=== PATIENT | female | born 1970 | race Caucasian/White ===

== ENCOUNTER 2017-09-20 23:21 | Observation (INO) ==
[2017-09-20] MEDS ORDERED: *HR* FentaNYL (PF) 100 MCG/2 ML VIAL IVP ONE (23:42)
[2017-09-21] MEDS ORDERED: Lidocaine 1% 20 ML MDV INFILT ONE (00:23)
--- NOTE | 2017-09-21 00:59 | Emergency Department Note ---
Disposition Clinical Impression: Ankle fracture Disposition: Admitted As Inpatient Condition: Good Time of Disposition: 01:42 General Adult HPI - General Chief complaint: ED Extremity Injury, Lower Stated complaint: Right Leg Injury Time Seen by Provider: 09/20/17 23:40 - History of Present Illness Pain Scale: 10 - Related Data Previous Rx's Medication Instructions Recorded Clindamycin [Cleocin] 150 mg PO Q6HR #8 capsule 05/04/15 OxyCODONE Immed Rel [Roxicodone 5 5 - 10 mg PO Q6HR PRN #30 tablet 05/04/15 MG] HYDROcodone/Acet 5/325 mg [[place] 1 tab PO Q4H PRN 3 Days #10 tab 09/18/17 5-325 mg] Allergies Allergy/AdvReac Type Severity Reaction Status Date / Time No Known Allergies Allergy Verified 09/18/17 22:05 Past Medical History - Past Medical History Medical history: Reports: no medical history Surgical history: Reports: hysterectomy, other Psychiatric history: Reports: no psych history 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 - Social History Smoking Status: Never smoker Smokeless Tobacco Status: No Alcohol use: Reports: rarely Drug use: Reports: none Course Vital Signs Temperature 98.7 F 09/20/17 23:37 Pulse Rate 98 09/20/17 23:37 Respiratory Rate 14 09/20/17 23:37 Blood Pressure 139/86 09/20/17 23:37 O2 Sat by Pulse Oximetry 98 09/20/17 23:37 Temperature 98.7 F 09/21/17 01:31 Pulse Rate 98 09/21/17 01:31 Respiratory Rate 14 09/21/17 01:31 Blood Pressure 139/86 09/21/17 01:31 O2 Sat by Pulse Oximetry 98 09/21/17 01:31 Oxygen Delivery Oxygen Delivery Room Air Attestation Statement - Attestation Attestation: I, Rodri Dacosta DO, examined this patient [id number] and my medical decision-making was reviewed with Dr. Flaco Cohen, Resident Physician. I agree with the documented findings, disposition and treatment plan as described except to the extent set forth below. Please see my progress notes for details. 47-year-old female presents for evaluation of reinjury to the right lower extremity and ankle. Patient was seen by myself yesterday for an ankle fracture. It appropriately reduction with hematoma block the right ankle with what appeared to be a bimalleolar versus trimalleolar fracture. Patient tripped and stumbled today reinjuring the foot. She has significant pain patient has any head injury or trauma. She is denying chest pain shortness of breath fevers chills nausea vomiting or diarrhea. Denies any headache or vision change. Reevaluation the foot shows good capillary refill and warmth to the foot. She does have palpable DP and PT pulses are symmetric to the left lower extremity. She has no other injuries or trauma this time. Repeat x-ray does show slight subluxation of the joint laterally consistent with the prereduction films of her collected yesterday. Patient had a repeat hematoma block completed here in the emergency room any complication a slight reduction of the ankle without issue. Pain was controlled patient was comfortable during the procedure despite some slight pain. Pain medication by IV distribution has been provided. Patient feels that she is unsafe to go home she cannot use crutches without she did not fall. Patient will be admitted to the hospital for further observation surgical consultation for the ankle fracture. Orthopedic physician was contacted. Discussed with the hospitalist make sure that confirm whether this goes to the radiation oncologist or the orthopedic physician for definitive management. Patient will be admitted for symptomatic pain control and reevaluation by the operative physicians. Patient otherwise currently stable. Postreduction films ordered here today. Pain has been controlled. See detailed documentation of the physical exam, medical intervention, medical decision-making disposition and procedures in the resident physician's note. 0135 Postreduction film shows stable presentation ankle mortise joint. The talus is still a centrally located over the tibial plafond. There is a slight lateral subluxation with probable reduction of this time. Patient is still requiring intervention. Patient will have some manipulation of the joint space again and admission. Every time she moves her leg the joint seemed to slip laterally. Patient does have good pulses with good capillary refill after the reduction as well as with the splint in place. She will be admitted to hospitals for definitive management.
--- NOTE | 2017-09-21 01:08 | Emergency Department Note ---
Disposition Clinical Impression: Ankle fracture Qualifiers: Encounter type: subsequent encounter Fracture type: closed Laterality: right Fracture healing: with nonunion Qualified Code(s): S82.891K - Other fracture of right lower leg, subsequent encounter for closed fracture with nonunion Disposition: Admitted As Inpatient Condition: Good Time of Disposition: 01:56 General Adult HPI - General Chief complaint: ED Extremity Injury, Lower Stated complaint: Right Leg Injury Time Seen by Provider: 09/20/17 23:40 Source: patient, family Mode of arrival: wheelchair Limitations: no limitations Nursing Notes Reviewed: Yes Vital Signs Reviewed: Yes - History of Present Illness HPI Narrative: Patient is a 47-year-old female presents for evaluation after fall at home causing reinjury to her right ankle. The patient was seen 2 nights ago in which she had a fall causing a trimalleolar ankle fracture to the right lower extremity. At that time she underwent a hematoma block and had a reduction and splint place with planned follow-up for orthopedic. Today she was walking the bathroom and tripped forward causing her right foot to go into extreme plantar flexion causing reinjury to the same ankle. She denies any other injury, no loss of consciousness, no head or neck injury. No loss of sensation in the foot. Pain Scale: 10 - Related Data Previous Rx's Medication Instructions Recorded Clindamycin [Cleocin] 150 mg PO Q6HR #8 capsule 05/04/15 OxyCODONE Immed Rel [Roxicodone 5 5 - 10 mg PO Q6HR PRN #30 tablet 05/04/15 MG] HYDROcodone/Acet 5/325 mg [[place] 1 tab PO Q4H PRN 3 Days #10 tab 09/18/17 5-325 mg] Allergies Allergy/AdvReac Type Severity Reaction Status Date / Time No Known Allergies Allergy Verified 09/18/17 22:05 All systems ED: reviewed and negative except as stated. Review of Systems: As Per HPI Past Medical History - Past Medical History Attestation: Yes The following information was validated with the patient. 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 EYES: PERRL, no scleral icterus. NOSE: The nose is normal in appearance without rhinorrhea RESP: Normal chest excursion with respiration; breath sounds clear and equal bilaterally; no wheezes, rhonchi, or rales CARD: Regular rhythm, without murmurs, rub or gallop ABD: Non-distended; non-tender, soft,without rigidity, rebound or guarding EXT: Initially on exam patient has a splint covering her right lower extremity. The splint was removed and revealed an edematous right ankle with an area of ecchymosis on the medial aspect. The ankle does not appear grossly deformed on exam. SKIN: Normal for age and race; warm and dry; no apparent lesions Course Course Narrative: Patient's repeat imaging does show recurrence of the patient's dislocation of her fracture minimally. Discussed the patient's case with Dr. Landrum and he will see the patient in the hospital. Discussed plan to admit her for pain control and also due to the patient failing outpatient with crutches. Patient also underwent a hematoma block with Xylocaine and reduction of her right ankle fracture with splinting. Status post splinting the patient had neurovascular intact. Vital Signs Temperature 98.7 F 09/20/17 23:37 Pulse Rate 98 09/20/17 23:37 Respiratory Rate 14 09/20/17 23:37 Blood Pressure 139/86 09/20/17 23:37 O2 Sat by Pulse Oximetry 98 09/20/17 23:37 Temperature 98.7 F 09/21/17 01:31 Pulse Rate 98 09/21/17 01:31 Respiratory Rate 14 09/21/17 01:35 Blood Pressure 128/91 09/21/17 01:35 O2 Sat by Pulse Oximetry 98 09/21/17 01:31 Oxygen Delivery Oxygen Delivery Room Air Procedures - Orthopedic Fracture Reduction Fracture #1 Consent Obtained: verbal consent Time Out Performed: Yes Side: right Fracture Reduction Location: tibia, fibula ASA Classification: CLASS I-Normal, healthy patient Analgesia: hematoma block Technique: direct manipulation Post Reduction X-rays Demonstrate: anatomical reduction Post-reduction neuro exam: intact Post-reduction vascular exam: intact Splint Applied: Yes Patient Tolerated Procedure: well Medical Decision Making - Medical Records Medical records reviewed: Yes I reviewed the patient's medical records. - Radiology Data Radiology results reviewed: Yes I reviewed the patient's radiology results. HISTORY: ORDERING SYSTEM PROVIDED HISTORY: fall Pain FINDINGS: Images were obtained in a fiberglass cast. Fractures of the distal fibula and medial malleolus are again seen. Degree of displacement has increased. There is increased lateral subluxation at the ankle joint. No new fractures are identified. There is diffuse soft tissue swelling. XR/XR ankle complete min 3V RT IMPRESSION: Interval increase in the lateral subluxation at the ankle joint with increased displacement of the fractures of the distal fibula and medial malleolus. Attestation Statement - Attestation Attestation: I, Rodri Dacosta DO, examined this patient [id number] and my medical decision-making was reviewed with Dr. Flaco Cohen, Resident Physician. I agree with the documented findings, disposition and treatment plan as described except to the extent set forth below. Please see my progress notes for details.
[2017-09-21] MEDS ORDERED: *HR* HYDROmorphone (PF) 1 MG/ML SYRINGE IVP ONE (01:16)
[2017-09-21] MEDS ORDERED: Ondansetron ODT 4 MG TAB.RAPDIS SL PRN (02:00)
[2017-09-21] MEDS ORDERED: Naloxone 0.4 MG/ML INJ IVP PRN (02:00)
--- NOTE | 2017-09-21 02:00 | Internal Med History&Physical ---
Date of Encounter: 09/21/17 Time of Encounter: 02:00 Internal Medicine - H&P: HPI Chief complaint: right foot fx History of present illness: Ms. Moran is a 47 year old female who presented for evaluation of reinjury to the right lower extremity and ankle. Patient was evaluated in ER for an ankle fracture a day prior to this admission. She s/p reduction with hematoma block the right ankle with what appeared to be a bimalleolar versus trimalleolar fracture. The Patient tripped and stumbled today reinjuring the foot. Reevaluation the foot shows slight subluxation of the joint laterally. Orthopedic physician was contacted. They agreed to consult on the patient if hospital admit the patient to manage pain. Past Med Surg Social Fam HX - Past Medical History Medical history: no medical history Additional medical history: vertigo Psychiatric history: no psych history - Past Surgical History Surgical History: hysterectomy, other Additional surgical history: LEEP. [place] teeth extracted. R shoulder RCR. Pilonidal cyst removed - Social History Smoking Status: Never smoker Smokeless Tobacco Status: No Alcohol use: rarely Drug use: none - Family History Mother Hx Family Respiratory Disorders: Yes (COPD) Hx Family Genitourinary Disorders: Yes Hx Family Endocrine Disorder: Yes (DM) Internal Medicine - H&P: Meds Clindamycin [Cleocin] 150 mg PO Q6HR #8 capsule 05/04/15 [Rx] OxyCODONE Immed Rel [Roxicodone 5 MG] 5 - 10 mg PO Q6HR PRN #30 tablet 05/04/15 [Rx] HYDROcodone/Acet 5/325 mg [[place] 5-325 mg] 1 tab PO Q4H PRN 3 Days #10 tab 09/18 [Rx] 3 Allergy/AdvReac Type Severity Reaction Status Date / Time No Known Allergies Allergy Verified 09/18/17 22:05 All Systems PM: A 10-system review of systems was performed and is negative for pertinent findings except as documented above in the HPI. - Constitutional Constitutional: no chills, no fever(s), no night sweats - Cardiovascular Cardiovascular ROS IM: no chest pain, no diaphoresis, no dyspnea, no lightheadedness, no palpitations, no syncope - Respiratory Respiratory: no cough, no dyspnea, no wheezing, no excessive phlegm production - Gastrointestinal Gastrointestinal: no abdominal pain, no diarrhea, no hematemesis, no hematochezia, no melena, no nausea, no vomiting - Musculoskeletal Musculoskeletal ROS IM: as per HPI, joint swelling, no numbness, no tingling - Neurological Neurological ROS: no confusion, no convulsions, no focal weakness, no numbness, no tingling, no tremor(s) - Constitutional Vitals: Temp Pulse Resp BP Pulse Ox 98.7 F 98 14 128/91 98 09/21/17 01:31 09/21/17 01:31 09/21/17 01:35 09/21/17 01:35 09/21/17 01:31 General appearance: Present: A&O X 3 - Head Head exam: Present: atraumatic, normocephalic - Neck Neck exam general surgery: Present: supple, trachea midline. Absent: lymphadenopathy - Respiratory Respiratory exam: Present: CTAB. Absent: accessory muscle use, rales, rhonchi, wheezes - Cardiovascular Cardiovascular exam: Present: RRR, +S1, +S2. Absent: diastolic murmur, gallop, rubs, systolic murmur - GI/Abdominal GI/Abdominal exam: Present: normal bowel sounds, soft, no peritoneal signs. Absent: distended, tenderness - Extremities Exam Extremities exam: Present: warm, radial pulses palpable and symmetrical. Absent : calf tenderness, cyanotic, pedal edema Internal Med - H&P Results - Labs CBC & Chem 7: 09/21/17 05:19 09/21/17 05:19 - Impressions ITS Impressions Ankle X-Ray 09/21/17 01:31 IMPRESSION: No change in joint space or fracture alignment. D/ / Jeb Logan MD / Jeb Logan MD Interpreting Provider: Jeb Logan MD - Assessment and plan (1) Ankle fracture Current Visit: Yes Status: Acute Assessment and plan: Orthopedic surgeon was consulted and he will see patient in consult this a.m., the patient have no comorbidities and is not taking any medications, we will start the patient on Dilaudid for pain control. Qualifiers: Encounter type: subsequent encounter Fracture type: closed Laterality: right Fracture healing: with nonunion Qualified Code(s): S82.891K - Other fracture of right lower leg, subsequent encounter for closed fracture with nonunion (2) Pain management Current Visit: Yes Status: Acute (3) DVT prophylaxis Current Visit: Yes Status: Acute - Time Spent With Patient Total time spent is greater than 50% in coordination of care (as documented) at patient's floor/unit and/or counseling patient:
[2017-09-21] MEDS: *HR* HYDROcodone/Acet 5/325 mg TABLET PO PRN ×3 (03:05→18:02)
[2017-09-21] MEDS: 0.9 % Sodium Chloride 1,000 ML IVC SCH ×2 (03:18→11:10)
[2017-09-21 05:52] LABS: Basophils % 0.4 %; Eosinophils % 0.3 %; Hematocrit 36.3 % (35.3-44.9); Hemoglobin 11.8 g/dL (11.5-15.4); Immature Granulocytes % 0.5 % (0-4); Lymphocytes # 2.2 K/mcL (0.6-4.6); Lymphocytes % 20.4 %; Mean Corpuscular HGB Conc 32.5 g/dL (31.6-35.5); Mean Corpuscular Volume 89.2 fL (83.0-100.0); Mean Platelet Volume 10.6 fL (9.4-12.4); Monocytes # 0.7 K/mcL (0.0-1.3); Neutrophils # 7.9 K/mcL (1.6-8.9); Platelet Count 207 K/mcL (140-400); Red Blood Count 4.07 M/mcL (3.82-4.97); Red Cell Distribution Width 13.9 % (11.5-14.5); Segmented Neutrophils % 72.4 %
[2017-09-21] MEDS: *HR* HYDROmorphone (PF) 1 MG/ML SYRINGE IVP PRN ×4 (05:53→21:39)
[2017-09-21 06:00] LABS: Alanine Aminotransferase 7 Units/L (7-52); Albumin 3.6 g/dL (3.5-5.7); Albumin/Globulin Ratio 1.6 (1.1-2.2); Alkaline Phosphatase 66 Units/L (34-104); Aspartate Amino Transferase 11 Units/L (13-39); BUN/Creatinine Ratio 18 (6-26); Bilirubin,Total 0.5 mg/dL (0.3-1.0); Blood Urea Nitrogen 11 mg/dL (6-20); Calcium 8.2 mg/dL (8.6-10.3); Carbon Dioxide 26 mEq/L (23-29); Chloride 108 mEq/L (98-107); Globulin 2.3 g/dL (2.4-3.5); Glucose 108 mg/dL (70-105); Osmolality,Calculated 288 (280-300); Potassium 3.5 mEq/L (3.5-5.1); Sodium 139 mEq/L (136-145); Total Protein 5.9 g/dL (6.4-8.9); eGFR For African Americans > 60 (> 60); eGFR For Non-African Americans > 60 (> 60)
--- NOTE | 2017-09-21 15:10 | Internal Med Progress Note ---
Date of Encounter: 09/21/17 Time of Encounter: 11:45 - Assessment and plan (1) Ankle fracture Current Visit: Yes Status: Acute Assessment and plan: Right ankle fracture x 2. Pt was seen in the ED for fracture, it was blocked and reduced. Pt was sent home where she fell and reinjured her ankle. Pt will be seen by ortho today and most likely have surgery tomorrow. Continue splint, ice, elevation, pain control Ankle X-Ray 09/21/17 01:31 IMPRESSION: No change in joint space or fracture alignment. D/ / Jeb Logan MD / Jeb Logan MD Interpreting Provider: Jeb Logan MD Qualifiers: Encounter type: subsequent encounter Fracture type: closed Laterality: right Fracture healing: with nonunion Qualified Code(s): S82.891K - Other fracture of right lower leg, subsequent encounter for closed fracture with nonunion (2) Pain management Current Visit: Yes Status: Acute Assessment and plan: Continue po [place] and IV Dilaudid. Ice, elevate, maintain splint (3) DVT prophylaxis Current Visit: Yes Status: Acute Assessment and plan: Start Lovenox SQ post op. - Time Spent With Patient Total time spent is greater than 50% in coordination of care (as documented) at patient's floor/unit and/or counseling patient: less than 15 minutes - Subjective Interval history: Patient was seen and assessed the bedside 1145. was at bedside. Pt states that pain is adequately controlled with IV Dilaudid. She denies headache or chest pain, SOB, abdominal pain, n/v/d. I did speak with Dr. Landrum's MA who stated that he will see the pt tonight and most likely have surgery tomorrow. - Constitutional Vitals: Temp Pulse Resp BP Pulse Ox 98.4 F 68 16 138/84 99 09/21/17 09:40 09/21/17 09:40 09/21/17 09:40 09/21/17 09:40 09/21/17 09:40 General appearance: Present: cooperative, A&O X 3, pleasant, no acute distress, answers questions appropriately - Head Head exam: Present: atraumatic, normal inspection, normocephalic - Eye Eye exam: Present: PERRL, conjuntiva pink, sclera anicteric Pupils: Present: PERRL - Neck Neck exam general surgery: Present: supple, trachea midline. Absent: lymphadenopathy, tenderness - Respiratory Respiratory exam: Present: CTAB. Absent: accessory muscle use, rales, rhonchi, wheezes - Cardiovascular Cardiovascular exam: Present: RRR, +S1, +S2. Absent: diastolic murmur, gallop, rubs, systolic murmur - GI/Abdominal GI/Abdominal exam: Present: normal bowel sounds, soft. Absent: distended, hepatomegaly, tenderness - Extremities Exam Extremities exam: Present: normal capillary refill, warm, radial pulses palpable and symmetrical. Absent: calf tenderness, cyanotic, pedal edema - Neurological Exam Neurological exam: Present: alert, oriented X3, no focal deficits. Absent: facial droop, speech deficit - Skin Skin exam: Present: dry, intact, normal color, warm. Absent: rash Internal Medicine: Result - Labs CBC & Chem 7: 09/21/17 05:19 09/21/17 05:19 Labs: Short CBC 09/21/17 Range/Units 05:19 WBC 10.8 (4.3-11.1) K/mcL Hgb 11.8 (11.5-15.4) g/dL Hct 36.3 (35.3-44.9) % Plt Count 207 (140-400) K/mcL Neutrophils # 7.9 (1.6-8.9) K/mcL BMP 09/21/17 05:19 Sodium 139 Potassium 3.5 Chloride 108 H Carbon Dioxide 26 BUN 11 Creatinine 0.62 Glucose 108 H Calcium 8.2 L Liver Function 09/21/17 Range/Units 05:19 Total Bilirubin 0.5 (0.3-1.0) mg/dL AST 11 L (13-39) Units/L ALT 7 (7-52) Units/L Alkaline Phosphatase 66 (34-104) Units/L Albumin 3.6 (3.5-5.7) g/dL - Impressions Impressions Ankle X-Ray 09/21/17 01:31 IMPRESSION: No change in joint space or fracture alignment. D/ / Jeb Logan MD / Jeb Logan MD Interpreting Provider: Jeb Logan MD Consult Discharge Plan - Plan Referrals: Kiki Palomino, COMPUTER CONSULTANT [Primary Care Provider] -
--- NOTE | 2017-09-22 00:04 | Orthopedic Consult Note ---
Date of Encounter: 09/22/17 Time of Encounter: 00:00 History of Present Illness Chief complaint: Right ankle pain HPI: Ms. Moran is a 47 year old female who sustained an injury to her right ankle on 2017. She slipped in some mud and her feet went out from underneath her. When she landed she injured her right ankle. She was seen in the emergency room and [facility] where x-rays taken revealed evidence of a fracture with tibiotalar subluxation. Fracture reduction was performed to improve with the subluxation. Patient was splinted and sent home. I think unfortunately the patient sustained a repeat injury yesterday, slight fracture and ankle mortise change was noted. Due to the patient's difficulty with ambulation and pain she was admitted for further management. Patient denies neurovascular complaints. Patient denies any other injuries. Patient does state she has some residual weakness in the right upper extremity from 2 previous surgeries. This has made ambulation more difficult. I reviewed the patient's completed medical record including history and physical exam and past history as well as x-rays and labs. Physical examination is limited as patient is in a posterior splint with the right lower extremity. Distal neurosensory exam is grossly intact. I reviewed a series of x-rays revealed a bimalleolar fracture with tibiotalar subluxation which was reduced into markedly improved position. Patient persisted having a bimalleolar fracture with offset of the ankle joint proper. Impression: Bimalleolar fracture right ankle Recommendation: This is a surgical fracture and I would recommend proceeding with open reduction internal fixation to restore anatomic alignment of the ankle. I discussed the surgical procedure at length with the patient and discussed potential risks and complications including but not limited to bleeding, infection, blood clots, nerve injury, stiffness, posttraumatic arthritis, nonunion and malunion. Patient understands and has requested we proceed with surgery. She has signed informed consent for the surgical procedure. We will proceed with surgery tomorrow when operating time is available. Thank you very much for allowing me to see care for Mrs. Moran. Sincerely, Ted Landrum,DO Past Med Surg Social Fam HX - Past Medical History Medical history: no medical history Additional medical history: vertigo Psychiatric history: no psych history - Past Surgical History Surgical History: hysterectomy, other Additional surgical history: LEEP. [place] teeth extracted. R shoulder RCR. Pilonidal cyst removed - Social History Smoking Status: Never smoker Smokeless Tobacco Status: No Alcohol use: rarely Drug use: none - Family History Mother Hx Family Respiratory Disorders: Yes (COPD) Hx Family Genitourinary Disorders: Yes Hx Family Endocrine Disorder: Yes (DM) Medications and Allergies [place] 1 each PO DAILY 09/21/17 [History] 3 Allergy/AdvReac Type Severity Reaction Status Date / Time No Known Allergies Allergy Verified 09/18/17 22:05 All Systems Reviewed: The remainder of the systems were reviewed and are negative Physical Exam - Constitutional Vitals: Temp Pulse Resp BP Pulse Ox 98.6 F 86 16 143/73 98 09/21/17 19:51 09/21/17 19:51 09/21/17 19:51 09/21/17 19:51 09/21/17 19:51 Results - Labs Result Diagrams: 09/21/17 05:19 09/21/17 05:19 Labs: Abnormal lab results Chloride 108 mEq/L (98-107) H 09/21/17 05:19 Glucose 108 mg/dL (70-105) H 09/21/17 05:19 Calcium 8.2 mg/dL (8.6-10.3) L 09/21/17 05:19 AST 11 Units/L (13-39) L 09/21/17 05:19 Serum Total Protein 5.9 g/dL (6.4-8.9) L 09/21/17 05:19 Globulin 2.3 g/dL (2.4-3.5) L 09/21/17 05:19 H & H 09/21/17 Range/Units 05:19 Hgb 11.8 (11.5-15.4) g/dL Hct 36.3 (35.3-44.9) % All other labs normal. - Diagnostic results Ankle/Foot x-ray: image reviewed Consult Discharge Plan - Plan Referrals: Kiki Palomino CNP [Primary Care Provider] -
[2017-09-22] MEDS: *HR* HYDROcodone/Acet 5/325 mg TABLET PO PRN ×2 (00:36→13:02)
[2017-09-22] MEDS: *HR* HYDROmorphone (PF) 1 MG/ML SYRINGE IVP PRN ×3 (06:19→16:11)
[2017-09-22] MEDS ORDERED: CeFAZolin Syr 2,000MG/20 ML 2,000 MG/20 ML SYRINGE IVPB ONE ×2 (09:15→20:58)
--- NOTE | 2017-09-22 15:41 | Internal Med Progress Note ---
Date of Encounter: 09/22/17 Time of Encounter: 11:30 - Assessment and plan (1) Ankle fracture Current Visit: Yes Status: Acute Assessment and plan: Patient had recent ER visit for ankle fracture, had it reduced, however fell and injured the same ankle at home. Current right ankle x-ray showed interval increase in the lateral subluxation at the ankle joint with increased displacement of the fractures of distal fibula and medial malleolus. Orthopedic surgery has been consulted, plan for open reduction and internal fixation today. Continue pain control with when necessary IV Dilaudid and oral Percocet. Patient is at low perioperative risk for this noncardiac surgery. Qualifiers: Encounter type: subsequent encounter Fracture type: closed Laterality: right Fracture healing: with nonunion Qualified Code(s): S82.891K - Other fracture of right lower leg, subsequent encounter for closed fracture with nonunion (2) DVT prophylaxis Current Visit: Yes Status: Acute - Time Spent With Patient Total time spent is greater than 50% in coordination of care (as documented) at patient's floor/unit and/or counseling patient: - Subjective Interval history: Reports severe pain in right ankle, receiving pain medication at the time of my evaluation. Awaiting right ankle surgery this evening. - Constitutional Vitals: Temp Pulse Resp BP Pulse Ox 98.8 F 77 16 121/73 96 09/22/17 11:24 09/22/17 11:24 09/22/17 11:24 09/22/17 11:24 09/22/17 11:24 General appearance: Present: mild distress, A&O X 3, answers questions appropriately - Respiratory Respiratory exam: Present: CTAB. Absent: accessory muscle use, rales, rhonchi, wheezes - Cardiovascular Cardiovascular exam: Present: RRR, +S1, +S2. Absent: diastolic murmur, gallop, rubs, systolic murmur - Extremities Exam Extremities exam: Present: warm, radial pulses palpable and symmetrical. Absent : calf tenderness, cyanotic, pedal edema Additional comments: Right ankle In Soft brace and immobilizer. Tenderness and edema+ Internal Medicine: Result - Labs CBC & Chem 7: 09/21/17 05:19 09/21/17 05:19 - VTE Documentation of Mechanical Device: Venous foot pump, device Consult Discharge Plan - Plan Referrals: Kiki Palomino, [facility] [Primary Care Provider] -
[2017-09-22] MEDS ORDERED: Famotidine 20 MG/2 ML VIAL IVP ONE ×2 (16:34→20:58)
[2017-09-22] MEDS ORDERED: Acetaminophen IV 1,000 MG/100 ML INFUS..BTL IVPB ONE ×2 (16:34→20:58)
[2017-09-22] MEDS ORDERED: Pregabalin 75 MG CAPSULE PO ONE (16:35)
--- NOTE | 2017-09-22 16:38 | Anesthesia Evaluation PreOp ---
Date of Encounter: 09/22/17 Time of Encounter: 16:35 - Past History Planned Operation: ORIF Rt Ankle Cardiac History: Denies any Significant Hx Pulmonary History: Denies Any Significant HX LAST MODEL MAKER History: Other (Vertigo) Other Medical History: Other (Obese) Anesthesia History: No Prior Anesthetic Complications : No (Hysterectomy) Alcohol Use: rarely Drug use: none Medications and Allergies Plexus 1 each PO DAILY 09/21/17 [History] 3 Allergy/AdvReac Type Severity Reaction Status Date / Time No Known Allergies Allergy Verified 09/18/17 22:05 - Meds/Allergy Pre-op Review Medications Reviewed: Yes Allergies Reviewed: Yes Beta Blockers on Current Med List: No Anesthesia Results - Labs 09/21/17 05:19 09/21/17 05:19 Laboratory Tests 05/04/15 09/21/17 09/21/17 10:03 05:19 05:19 Hgb 11.8 POC Hgb 13.2 Plt Count 207 Sodium 139 Potassium 3.5 BUN 11 Creatinine 0.62 Anesthesia Exam Vital Signs/O2 Sat/Glucose, Most Current Temp Pulse Resp BP Pulse Ox 09/22/17 15:52 98.4 F 63 16 107/67 97 Height: 5'3 Weight: 218 lbs NPO (# of Hours): MN Pain Scale: 1 - HEENT Pupil (Motor): Pupils equal, EOMI Mallampati: II Teeth: Normal Oral Opening: Greater than 3 - LAST MODEL MAKER LOC: Oriented LAST MODEL MAKER Motor: Normal RUE, Normal LUE, Normal RLE, Normal LLE, Normal Face LA[employer] MODEL [employer]KER Sensory: Normal: RUE, LUE, RLE, LLE, Face - Cardiac Rhythm: Regular Murmur: None JVD: No Carotid Bruit: No - Pulmonary Breath Sounds: bilateral Clear Respiratory Effort: Symmetrical Anesthesia Assess/Plan ASA Score: 2 Modified Arrey Scale for Level of Consciousness: Cooperative, oriented, and tranquil Anesthetic Plan: General, Regional Monitoring Plan: Standard Monitors Recovery Plan: PACU (Discussed GA and RA, agrees to proceed)
[2017-09-22] MEDS ORDERED: Bupivacaine/EPI 1:200k 0.5%PF 10 ML VIAL ONE (16:46)
[2017-09-22] MEDS ORDERED: Acetaminophen IV 1,000 MG/100 ML INFUS..BTL ONE (16:51)
[2017-09-22] MEDS ORDERED: Famotidine 20 MG/2 ML VIAL ONE (16:51)
[2017-09-22] MEDS ORDERED: *HR* FentaNYL (PF) 100 MCG/2 ML VIAL ONE (16:59)
[2017-09-22] MEDS ORDERED: Ondansetron 4 MG/2 ML VIAL ONE (16:59)
[2017-09-22] MEDS ORDERED: Dexamethasone 4 MG/ML VIAL ONE (16:59)
[2017-09-22] MEDS ORDERED: *HR* Midazolam HCl 2 MG/2 ML VIAL ONE (16:59)
[2017-09-22] MEDS ORDERED: *HR* Propofol 200 MG/20 ML VIAL IVP ONE (16:59)
[2017-09-22] MEDS ORDERED: Lidocaine -MPF 2% 2 ML VIAL ONE (16:59)
[2017-09-22] MEDS ORDERED: ROPIVACAINE HCL/PF 0.5% 30 ML VIAL ONE (17:15)
[2017-09-22] MEDS ORDERED: Tetracaine/PF 20 MG/2 ML AMPUL ONE (17:15)
--- NOTE | 2017-09-22 18:00 | Anesthesia Procedures ---
Date of Encounter: 09/22/17 Time of Encounter: 16:35 Procedures: Anesthesia - Nerve Block Procedure Date: 09/22/17 Time: 17:00 Pre-op Diagnosis: Fracture Rt Ankle Surgical Procedure: ORIF Rt Ankle Checklist: Correct Patient Identifier Correct side: Right Blood Thinner: No Monitor Applied: EKG, BP, Pulse Oximetry Supplemental Oxygen via Nasal Cannula (L/min): 2 Sedation: Versed (mg): 2 Sedation: Fentanyl (mcg): 100 Indication: Post Op Analgesia Pre-op Neuro Deficits: No Block Type: Popliteal, Other (Adductor Canal) Catheter placed: No Depth at skin (cm): 4 Sterile Technique: Yes Ultrasound used: Yes Anatomy identified: Yes Visual spread of Local: Yes Neuro Stimulation: No Blood on Needle Aspiration: No Smooth Injection of Local: Yes Pain with Injection of Local: No Prep: Chlorhexadine Needle: 22 x 50 mm Stimuplex Local: Ropivacaine, Other (Bupivacaine 0.5%) Volume (cc): 30 Number of Attempts: 1 Complications: None/effective block Vitals: Vital Signs/O2 Sat/Glucose, Most Current Temp Pulse Resp BP Pulse Ox 09/22/17 17:25 71 121/68 98 09/22/17 15:52 98.4 F 63 16 107/67 97
[2017-09-22] MEDS ORDERED: *HR* OxyCODONE Immed Rel 5 MG TABLET PO PRN ×2 (18:57→20:58)
[2017-09-22] MEDS ORDERED: *HR* Labetalol 100 MG/20 ML MDV IVP PRN ×2 (18:57→20:58)
[2017-09-22] MEDS ORDERED: *HR* Morphine 2 MG/ML SYRINGE IVP PRN ×2 (18:57→20:58)
[2017-09-22] MEDS ORDERED: *HR* Promethazine 25 MG/ML VIAL IVP PRN ×2 (18:57→20:58)
--- NOTE | 2017-09-22 19:51 | Operative Note ---
Date of procedure: 09/22/17 Pre-op diagnosis: Displaced bimalleolar fracture right ankle Post-op diagnosis: same Procedure: 1. Open reduction internal fixation of bimalleolar fracture right ankle 2. Fluoroscopic guidance for ORIF right ankle Implants: Synthes 4 hole right distal fibular LCP with screws and 2 x 4.0 mm x 50 mm fully threaded cancellous screws Complications: None Anesthesia: GETA Surgeon: Ted Landrum Was there an warehouse administrative assistant present: No Estimated blood loss (cc): 7 Tourniquet Time (Minutes): 58 Specimen: None Condition: stable Disposition: PACU Procedure in Detail: Gross findings: Preoperative x-rays revealed a displaced fracture of the right ankle. This was a bimalleolar type fracture involving the medial and lateral malleoli. Patient had a fracture dislocation/subluxation that was treated by closed reduction of dislocation. Patient persisted in having displacement of both the medial and lateral fractures and disruption of the ankle mortise. Intraoperative findings were as anticipated with a marked amount of fracture hematoma and encountered both medial and lateral. Lateral fracture was reduced and held in in essence anatomic position utilizing a Synthes distal fibular locking plate and screw type construct. Medial side was reduced and held in an anatomic position placing 2 x 4.0 mm cancellous screws from the tip of the medial malleolus up into the more proximal tibia. Fluoroscopy was used to verify the reduction and verified excellent placement of all fracture implants Procedure patient was taken to the operating room placed in supine position on the operative table. Patient had a saphenous and popliteal nerve block administered by anesthesia in the preoperative area. Patient was now transferred to the operating table. Patient was now administered general anesthesia. Once adequate level of anesthesia. Obtained the right lower extremity was prepped and draped in normal standard fashion with a tourniquet placed about the proximal calf. Right leg was now exsanguinated utilizing Esmarch and tourniquet was inflated. A right lateral ankle incision was created. Dissection was carried through the subcutaneous tissues with a marked amount of fracture hematoma encountered. Femoral amount of soft tissue stripping had occurred from the proximal fragment of the lateral malleolus. The fracture site was identified. It was irrigated and debrided of clot and debris. Fracture was now reduced and held in anatomic position with multiple bone-holding clamps. Fluoroscopy was used to verify the fracture reduction. At this time a 4 hole distal fibular locking plate was positioned up against the fibula. It was placed to allow for for a 3.5 mm locking screw to be placed and distal fragment. It was held in place and then lightly lagged with 23.5 mm cortical screws proximal. The distal locking screws were then placed. The plate was then securely lagged securing the fixation. This is followed by placing additional 3.5 mm locking screws in the proximal portion. Bone-holding clamps are removed. Multiplane are fluoroscopy was taken verifying excellent reduction of the fracture and position of the implants. Attention was now turned medial. A slightly extended medial incision was created. Dissection was carried through subtendinous tissues again a marked amount of fracture hematoma was encountered and evacuated. The fracture site was irrigated and debrided of clot and hematoma. Limited subperiosteal exposure was performed just enough to allow for alignment of the fracture. The fracture was then reduced with direct visualization and secured with bone- holding clamp. Fluoroscopy was used to verify the reduction. At this time 2 4.0 mm fully threaded cancellous screws were placed from the tip of the malleolus up to the more proximal tibia. Position was verified with fluoroscopy. Bone-holding clamp was removed with excellent maintenance of reduction and fixation. At this time final fluoroscopic views are taken in multiple planes. This is followed by wound closure. Wounds were irrigated and closed with 2-0 undyed Vicryl in the deep and medius obtained his tissues followed by skin approximation with standing still clips. Sterile dressings consisting of bacitracin Adaptic 4 x 4's and sterile cast padding were applied. Tourniquet was deflated. Patient was now placed into a posterior splint which was secured with Neno wraps. Patient was now awakened from anesthesia extubating operating room and then transferred to the postanesthesia care unit in stable and satisfactory condition. All sponge needle and instrument counts are correct. No specimens are sent for pathology.
--- NOTE | 2017-09-22 20:17 | Anesthesia Evaluation Post Op ---
Date of Encounter: 09/22/17 Time of Encounter: 19:48 Notes: Patient's vital signs have been reviewed. Patient is stable postoperatively and has adequately recovered from anesthesia. Patient is determined to have stable airway patency and respiratory function including respiratory rate and oxygen saturation. Patient has a stable heart rate, blood pressure and adequate hydration. Patients mental status is acceptable. Patients temperature is appropriate. Pain and nausea are adequately controlled. - Discharge PostOp Status: Transfer Patient to floor
[2017-09-22] MEDS ORDERED: Naloxone 0.4 MG/ML INJ IVP PRN (20:58)
[2017-09-22] MEDS ORDERED: Ondansetron ODT 4 MG TAB.RAPDIS SL PRN (20:58)
[2017-09-22] MEDS ORDERED: *HR* HYDROmorphone (PF) 1 MG/ML SYRINGE IVP PRN (20:58)
[2017-09-22] MEDS ORDERED: *HR* HYDROcodone/Acet 5/325 mg TABLET PO PRN (20:58)
[2017-09-23] MEDS ORDERED: *HR* Enoxaparin 30 MG/0.3 ML SYRINGE SQ SCH (06:00)
[2017-09-23 10:56] VITALS: BP 116/73
--- NOTE | 2017-09-23 13:56 | Discharge Summary ---
- NOTES TO OUTPATIENT PROVIDER Notes to Outpatient Provider: Right ankle fracture s/p ORIF Orders not resulted at time of discharge: Pending orders 09/22/17 17:07 US anesthesia pain block [US] Routine Date of Encounter: 09/23/17 Time of Encounter: 13:54 - Discharge Diagnosis (1) Ankle fracture Priority: Primary Status: Acute Qualifiers: Encounter type: subsequent encounter Fracture type: closed Laterality: right Fracture healing: with nonunion Qualified Code(s): S82.891K - Other fracture of right lower leg, subsequent encounter for closed fracture with nonunion (2) DVT prophylaxis Priority: Primary Status: Acute Hospital course: Ms. Moran is a 47 year old female with no significant past medical history, who presented to the emergency room for a second time due to right ankle injury. Right ankle x-ray showed interval increase in the lateral subluxation at the ankle joint with increased displacement of fractures of distal fibula and medial malleolus. Orthopedic surgery was consulted and patient underwent open reduction and internal fixation of bimalleolar right ankle fracture on . Patient is doing well today, continues to have anesthetic effects of nerve block in the right leg and ankle. Case discussed with orthopedics, patient is stable for discharge with outpatient follow-up, she is being discharged on pain medications and DVT prophylaxis with PO ASA. Discharge discussed with: patient, family, nurse, workforce management consultant - Time Spent with Patient Total time spent providing and/or coordinating discharge services: Greater than 30 minutes (40 min) - Discharge Medications Prescriptions: Aspirin 325 mg PO BID #28 tablet HYDROcodone/Acet 5/325 mg [Claunch 5-325 mg] 2 tab PO Q6H PRN 7 Days #25 tablet PRN Reason: Severe Pain Home Medications: Plexus 1 each PO DAILY 09/21/17 [History] Aspirin 325 mg PO BID #28 tablet 09/23/17 [Rx] HYDROcodone/Acet 5/325 mg [Claunch 5-325 mg] 2 tab PO Q6H PRN 7 Days #25 tablet [Rx] Allergies/Adverse Reactions: 3 Allergy/AdvReac Type Severity Reaction Status Date / Time No Known Allergies Allergy Verified 09/18/17 22:05 Date of admission: 09/21/17 01:23 Primary care physician: Kiki Palomino CNP Consults: 09/21/17 01:56 Consult to Orthopedic Surgery [CONS] Routine Consulting Provider: Ted Landrum Reason for Consult: right ankle fracture Time Notified: 01:57 Call Completed: Yes 09/21/17 03:11 Consult to Cda Teacher [CONS] Routine Reason for SW Consult: Possible need for discharge 09/22/17 20:58 Consult to Physical Therapy [CONS] Routine Comment: Evaluate, develop and implement POC Reason for Consult: fx Does patient have active BEDREST order?: No Is patient medically & hemodynamically stable?: Yes Discharging clinician: Mirella Quispe Anticipated date of discharge: 09/23/17 - Constitutional Vitals: Temp Pulse Resp BP Pulse Ox 98.2 F 88 16 116/73 95 09/23/17 10:48 09/23/17 10:48 09/23/17 10:48 09/23/17 10:48 09/23/17 10:48 General appearance: Present: A&O X 3, answers questions appropriately - Cardiovascular Cardiovascular exam: Present: RRR, +S1, +S2. Absent: diastolic murmur, gallop, rubs, systolic murmur - Patient Status Disposition: Home, Self-Care Condition: Good Functional capacity at discharge: uses cane/walker Overall status at discharge: patient is progressing back to baseline - Discharge Instructions Follow Up With: Ted Landrum DO [Non-Partnered Physician] - 10/07/17 11:00 am Additional Instructions: F/up with in 1-2 weeks (October 07 @ 11:00am). Non weight bearing. Keep your dressing clean and dry. Go to nearest emergency room for chest pain, shortness of breath, fever over 101, any yellow, green, or foul smelling drainage. - Diet and Activity Activity: as per physical therapy (outpatient), resume usual activities as tolerated (non-weight bearing right leg) Diet: advance to your usual diet, regular diet - VTE Documentation of Mechanical Device: Venous foot pump, device
== END 2017-09-23 15:32 | disposition home or self-care (01) ==
LOC: 3NENU 23:21 → EMEROO 23:21 → SUATTDRO 09-21 01:23 → 3NENU 09-21 02:39
PROVIDERS: ADMIT Internal Medicine; ATTEND Internal Medicine

== ENCOUNTER 2020-06-04 08:15 | Observation (INO) ==
[2020-06-04] MEDS ORDERED: Aspirin 81 MG TAB.CHEW PO ONE (08:32)
[2020-06-04] MEDS: Nitroglycerin 0.4 MG TAB.SUBL SL PRN ×2 (08:44→18:55)
[2020-06-04 08:50] LABS: Basophils # 0.1 K/mcL (0.0-0.2); Basophils % 0.8 %; Eosinophils # 0.1 K/mcL (0.0-0.6); Hematocrit 41.7 % (35.3-44.9); Hemoglobin 13.5 g/dL (11.5-15.4); Immature Granulocytes % 0.4 % (0-4); Lymphocytes # 1.6 K/mcL (0.6-4.6); Lymphocytes % 21.2 %; Mean Corpuscular HGB Conc 32.4 g/dL (31.6-35.5); Mean Corpuscular Hemoglobin 28.8 pg (28.0-33.3); Mean Corpuscular Volume 89.1 fL (83.0-100.0); Mean Platelet Volume 10.3 fL (9.4-12.4); Monocytes # 0.4 K/mcL (0.0-1.3); Monocytes % 5.5 %; Neutrophils # 5.4 K/mcL (1.6-8.9); Platelet Count 230 K/mcL (140-400); Red Blood Count 4.68 M/mcL (3.82-4.97); Red Cell Distribution Width 13.9 % (11.5-14.5); Segmented Neutrophils % 71.1 %; White Blood Count 7.7 K/mcL (4.3-11.1)
[2020-06-04 09:13] LABS: BUN/Creatinine Ratio 17 (6-26); Blood Urea Nitrogen 11 mg/dL (6-20); Calcium 8.5 mg/dL (8.6-10.3); Carbon Dioxide 23 mEq/L (23-29); Chloride 105 mEq/L (98-107); Glucose 103 mg/dL (70-105); Osmolality,Calculated 288 (280-300); Potassium 3.5 mEq/L (3.5-5.1); Sodium 139 mEq/L (136-145); eGFR For African Americans > 60 (> 60); eGFR For Non-African Americans > 60 (> 60)
[2020-06-04 09:14] LABS: Troponin I < 0.03 ng/mL (< 0.04)
[2020-06-04] MEDS ORDERED: Morphine Sulfate 2 MG/ML SYRINGE IVP STA (10:02)
[2020-06-04] MEDS ORDERED: Naloxone 0.4 MG/ML INJ IVP PRN (10:42)
[2020-06-04] MEDS ORDERED: *HR* HYDROcodone/Acet 5/325 mg TABLET PO PRN (10:42)
[2020-06-04] MEDS ORDERED: Ondansetron 4 MG/2 ML VIAL IVP PRN (10:42)
[2020-06-04] MEDS ORDERED: Acetaminophen 325 MG TABLET PO PRN (10:42)
[2020-06-04] MEDS ORDERED: Melatonin 3 MG TABLET PO PRN (10:42)
[2020-06-04 11:19] LABS: Chol/HDL Ratio 4.3 (0-4.9); Cholesterol 260 mg/dL (< 200); HDL Cholesterol 60 mg/dL (40-59); LDL Cholesterol,Calculated 161 mg/dL (< 100); Triglycerides 193 mg/dL (< 150)
[2020-06-04] MEDS: amLODIPine 5 MG TABLET PO SCH (18:44)
[2020-06-04] MEDS: Calcium Gluconate 1gm/50mL 1 GM/50 ML BAG IVPB SCH ×2 (20:02→20:59)
[2020-06-05 04:57] LABS: Basophils # 0.1 K/mcL (0.0-0.2); Basophils % 0.7 %; Eosinophils # 0.1 K/mcL (0.0-0.6); Eosinophils % 1.9 %; Hematocrit 39.7 % (35.3-44.9); Hemoglobin 12.6 g/dL (11.5-15.4); Immature Granulocytes % 0.3 % (0-4); Lymphocytes % 29.7 %; Mean Corpuscular HGB Conc 31.7 g/dL (31.6-35.5); Mean Corpuscular Hemoglobin 28.3 pg (28.0-33.3); Mean Corpuscular Volume 89.2 fL (83.0-100.0); Mean Platelet Volume 10.4 fL (9.4-12.4); Monocytes # 0.4 K/mcL (0.0-1.3); Monocytes % 5.6 %; Neutrophils # 4.2 K/mcL (1.6-8.9); Platelet Count 240 K/mcL (140-400); Red Blood Count 4.45 M/mcL (3.82-4.97); Red Cell Distribution Width 14.1 % (11.5-14.5); Segmented Neutrophils % 61.8 %; White Blood Count 6.8 K/mcL (4.3-11.1)
[2020-06-05 05:05] LABS: Prothrombin Time 11.8 Seconds (9.4-12.1)
[2020-06-05 05:20] LABS: Alanine Aminotransferase 12 Units/L (7-52); Albumin 3.7 g/dL (3.5-5.7); Albumin/Globulin Ratio 1.5 (1.1-2.2); Alkaline Phosphatase 65 Units/L (34-104); Aspartate Amino Transferase 11 Units/L (13-39); BUN/Creatinine Ratio 22 (6-26); Bilirubin,Total 0.5 mg/dL (0.3-1.0); Blood Urea Nitrogen 13 mg/dL (6-20); Calcium 8.6 mg/dL (8.6-10.3); Carbon Dioxide 23 mEq/L (23-29); Chloride 106 mEq/L (98-107); Globulin 2.4 g/dL (2.4-3.5); Glucose 102 mg/dL (70-105); Magnesium 1.9 mg/dL (1.6-2.6); Osmolality,Calculated 288 (280-300); Phosphorous 3.4 mg/dL (2.7-4.5); Potassium 3.8 mEq/L (3.5-5.1); Sodium 139 mEq/L (136-145); Total Protein 6.1 g/dL (6.4-8.9); eGFR For African Americans > 60 (> 60); eGFR For Non-African Americans > 60 (> 60)
[2020-06-05] MEDS ORDERED: Regadenoson 0.4 MG/5 ML SYRINGE IVP ONE (06:00)
[2020-06-05] MEDS ORDERED: *HR* Enoxaparin 40 MG/0.4 ML SYRINGE SQ SCH (06:00)
[2020-06-05] MEDS ORDERED: Multivit/Ca/Min/Fe/FA 1 TAB TABLET PO SCH (09:00)
[2020-06-05] MEDS: amLODIPine 5 MG TABLET PO SCH (09:22)
[2020-06-05 11:13] VITALS: BP 164/79
== END 2020-06-05 13:40 | disposition home or self-care (01) ==
LOC: 3BNU 08:15 → EMEROOARM 08:15 → SUATTDRO 10:23 → 3BNU 11:01
PROVIDERS: ADMIT Internal Medicine; ATTEND Internal Medicine